=== PATIENT | male | born 1950 | race Caucasian/White ===

== ENCOUNTER 2021-11-04 10:21 | Day surgery (SDC) | payer SELFPAY ==
[2021-11-04 10:43] VITALS: BP 129/92; PULSE 79; RESP 16; TEMP 36.7; O2SAT 96
[2021-11-04] MEDS: Tropicam./Phenyleph. (1/2.5%) 5 ML BTL OD ×3 (10:59→11:10)
--- NOTE | 2021-11-04 12:34 | W.ANESPRE ---
General Info Date of Service Date Performed: 11/04/21 Height: 5 ft 8 in Weight: 101.5 kg Body Mass Index (BMI): 34.0 Surgical Procedure: Operation Date: 11/04/21 12:10 Proposed Procedure Side Surgeon p Cataract Extraction with IOL Implant Right Uday Estrada MD Meds Allergies and Home Medications Allergies Allergy/AdvReac Type Severity Reaction Status Date / Time No Known Allergies Allergy Verified 11/04/21 10:42 Home Medication Medication Instructions Recorded Unknown [No Known Home Meds] 10/31/21 Current Visit Medications: Current Medications Generic Name Dose Route Start Last Admin Trade Name Freq PRN Reason Stop Dose Admin Acetaminophen 1,000 mg 11/04/21 06:00 Acetaminophen 500 Mg Tab PO 11/04/21 16:00 Q4H PRN PRN Miscellaneous Medication 0 ml 11/04/21 06:00 Prednisolone 1%, Moxifloxacin 0.5%, Nepafenac 0.1% 5ml Btl OD 11/04/21 16:00 DIRECTED MARIOLA Miscellaneous Medication 0 ml 11/04/21 06:00 11/04/21 11:10 Tropicam./Phenyleph. (1/2.5%) 5 Ml Btl OD 11/04/21 16:00 1 drp DIRECTED MARIOLA Administration Tetracaine HCl 0 ml 11/04/21 06:00 Tetracaine 0.5% 4 Ml Btl OD 11/04/21 16:00 DIRECTED MARIOLA PFSH Medical History Medical History Cataracts, bilateral Surgical History Surgical History Hx of hernia repair Hx of tonsillectomy Tobacco Smoking/Tobacco Use Status: Never Alcohol Alcohol Intake: current Alcohol intake frequency: holidays/special occasions only Substance Use Substance use: Never Substance use type: does not use Vital Signs and Lab Results Vital Signs Most Recent Vital Signs in EMR: Most Recent Vital Signs Temp Pulse Resp BP Pulse Ox 36.7 C 79 16 129/92 H 96 11/04/21 10:43 11/04/21 10:43 11/04/21 10:43 11/04/21 10:43 11/04/21 10:43 Lab Results Blood Type / Crossmatch: No Data to Display Complete Blood Count: No Data to Display Complete Metabolic Panel: No Data to Display Liver Function Panel: No Data to Display Coagulation Panel: No Data to Display Cardiac Panel: No Data to Display Arterial Blood Gas: No Data to Display Venous Blood Gas: No Data to Display Pancreas Panel: No Data to Display Thyroid Panel: No Data to Display Infectious Disease: No Data to Display Blood Cultures: No Data to Display Toxicology Panel: No Data to Display Anesthesia Assessment and Plan Anesthesia History Personal History: No History of Anesthesia Complications Family History: No Family History of Anesthesia Complications Exercise Tolerance Exercise Tolerance: Metabolic Equivalents>4 Pertinent Negatives Pertinent Negatives: No Symptoms of GERD, No Major Cardiovascular Symptoms or Complaints, No Major Pulmonary Symptoms or Complaints and No History of CVA/TIA Cardiac & Pulmonary Exam Cardiac Exam: Normal S1/S2 Heart Sounds Pulmonary Exam: Clear Bilateral Breath Sounds Implantable Cardiac Device Does patient have a Pacemaker or an ICD?: No Airway Exam Known Difficult Airway: No Mallampati Class: 2 Mouth Opening: Normal (> 3cm) Thyromental Distance: Greater than 3 cm Facial Hair: Full [place] Neck Range of Motion: Limited ROM Neck Circumference: Thick Teeth Condition: Edentulous ASA Classification ASA Score: ASA 2 Emergency Case?: No NPO Status NPO Status: NPO Clears >2 hours, Solids >8 hours Anesthesia Plan Resuscitation Status: Full Code Anesthesia Technique: MAC Anesthesia Airway Planned: Natural Airway Monitors Used: Standard Monitors
[2021-11-04 12:35] VITALS: BMI 34.0
[2021-11-04] MEDS: Tetracaine 0.5% 4 ML BTL OD (13:06)
[2021-11-04] MEDS: Balanced Salt Soln.-PLUS 500 ML BAG (13:08)
[2021-11-04] MEDS: Duovisc Viscoelastic System EACH 1 EACH (13:09)
[2021-11-04] MEDS: Lidocaine 2% Jelly 6 ML SYR (13:10)
[2021-11-04] MEDS: Trypan Blue 0.06% 0.5 ML SYR (13:11)
--- NOTE | 2021-11-04 13:43 | W.PM.DSUDISC ---
Discharge Plan Disposition Patient Disposition: HOME Condition: Good Discharge Details Attending Provider: Uday Estrada Primary Care Provider: Rogelio Tapia Home Meds and New Rx's Prescriptions: No Action No Known Home Meds Discharge Instructions Stand Alone Forms: Post-op Topical Cataract, Ivonne Roque (DSU) Discharge Orders Discharge Orders: Discharge Order (Routine); Ordered 11/04/21 Ordered By: Uday Estrada DS: Diagnosis Discharge Diagnosis (1) Hypermature senile cataract of right eye: Status: Resolved
[2021-11-04 13:45] VITALS: BP 130/93; PULSE 55; RESP 16; TEMP 36.4; O2SAT 99
--- NOTE | 2021-11-04 13:46 | ROE_ITS ---
Date of service: 11/04/21 Time of Service: 12:46 Operative Note Operative Note DATE OF PROCEDURE: 11/04/21 PRE-OP DIAGNOSIS: Mature white cataract, right eye Absent red reflex, right eye POST-OP DIAGNOSIS: same PROCEDURE: Cataract extraction using phacoemulsification with intraocular lens implantation, right eye, using capsular staining with Vision Blue SURGEON: Uday Estrada ANESTHESIA TYPE: Local By Surgeon and MAC Refer to Anesthesia Record PATHOLOGY: none sent COMPLICATIONS: None Patient was transported to: same day Patient's condition: stable Implants: [employer] / [employer] Tecnis [id number] Indications: Progressive visual loss due to cataract, right eye Procedure Description: CATARACT SURGERY OPERATIVE REPORT PREOPERATIVE DIAGNOSIS: 1. Mature white cataract, right eye 2. Poor red reflex secondary to #1 POSTOPERATIVE DIAGNOSIS: Same OPERATION: 1. Cataract extraction using phacoemulsification with posterior chamber intraocular lens implant, right eye. 2. Capsular staining with Vision Blue IOL: IOL Featheredge Machine Operator/Model: Chaz & Chaz / UMER Tecnis [id number] IOL Power: + 18.5 diopters IOL Serial Number: [id number] Optic Diameter: 6.0mm Haptic/Overall Diameter: 13.0mm PHACO INFO: Neil [employer] Vision System with OZil and Active Fluidics Cumulative Dispersed Energy (CDE): 33.09 seconds SURGEON: Uday Estrada MD, RIYA ANESTHESIA: Monitored Anesthesia Care (MAC), with local sub-tenon's anesthetic infiltration COMPLICATIONS: None SPECIMENS: None INDICATIONS FOR PROCEDURE: The patient is a 71-year-old gentleman with history of progressive decreased vision in his right eye over the past several years. He is noted to have a mature white cataract with dense end of nucleus in the right eye with hand motions vision. The option of cataract surgery was offered to the patient and he wished to proceed. PROCEDURE: The correct surgical eye was identified and marked as the right eye and the pupil was dilated in the preoperative area using mydriatics and cycloplegics. The dilated pupil size was 7.0 mm. He elected to proceed without oral sedation. The patient was brought to the operating room where cardiopulmonary monitoring was instituted and surgical time-out was performed, confirming the correct operative eye and IOL power. Topical anesthesia was administered and ophthalmic povidone-iodine 5% was instilled into the conjunctival fornices. Lidocaine gel was applied to the cornea and the gabby-ocular area was prepped with Betadine 10% solution and draped in the usual sterile fashion for intraocular surgery, including an aperture drape. A Tegaderm transparent film dressing was cut in half and used to cover the lashes and lid margins. Care was taken to sequester the lashes and lid margins under the Tegaderm dressing. A lid speculum was placed between the lids of the operative eye and the Neil Lux[employer] Revalia operating microscope was maneuvered into position. Farooq scissors were then used to make a conjunctival buttonhole approximately 6mm posterior to the limbus in the inferonasal quadrant. Blunt dissection was carried out to expose bare sclera, and a blunt-tipped sub-tenon?s anesthesia cannula was introduced and passed posteriorly along the globe where non-pr eserved plain lidocaine was injected into posterior sub-Tenon?s space. A sideport knife was used to make a paracentesis port inferotemporally. Intraocular phenylephrine/lidocaine was injected into the anterior chamber. Air was injected into the anterior chamber, followed by Vision Blue, which was painted over the anterior capsule and then irrigated out with BSS. The anterior chamber was filled with viscoelastic. A 2.4 mm keratome knife was used to create a 2-plane near clear corneal tunnel extending approximately 2 mm into clear cornea superior temporally.. A flap was raised on the anterior capsule and capsulorhexis forceps were used to complete a continuous curvilinear capsulorhexis of 5.0 mm. The spiral technique was used to create the capsulorrhexis. The anterior chamber was noted to be quite deep with significant zonular laxity. Balanced salt solution was then used to perform cortical cleaving hydrodissection and nuclear hydrodelineation until the lens could be freely rotated within the capsular bag. The lens nucleus was then disassembled and removed within the capsular bag and iris plane using phacoemulsification. Cataract was noted to be quite dense with a dense end of nucleus and fibrotic posterior plate. Viscoat was injected into the anterior chamber intermittently to protect the corneal endothelium. Residual cortical material was removed using the I/A handpiece. The posterior capsule was carefully polished to remove as much residual lens epithelial cells as safely possible. The capsular bag was then inflated and the anterior chamber deepened with viscoelastic. A Type 15A Morcher capsular tension ring was inserted into the capsular bag without difficulty. The lens implant described above was inserted into the capsular bag using the UMER [place] Injector. A Kuglen hook was used to dial the IOL into position. Residual viscoelastic was then removed first from posterior to the IOL, then from the anterior chamber using the I/A handpiece. The lens implant was noted to center nicely within the capsular bag. The incisions were stromally hydrated, and the anterior chamber was reformed using BSS. Then 0.5cc of moxifloxacin 1.0mg/ml were injected into the capsular bag and anterior chamber. The incisions were checked with a Weck spear and found to be secure. Several drops of ophthalmic povidone-iodine 5% were then applied to the eye followed by two drops of Imprimis combination prednisolone/moxifloxacin/nepafenac solution. The drapes were removed and a clear plastic protective eye shield was placed over the eye. The patient was then returned to [facility] Day Surgery in stable condition.
--- NOTE | 2021-11-04 15:06 | W.ANESPOSTOP ---
Postoperative Evaluation Date, Time and Location Date Performed: 11/04/21 Time Performed: 13:35 Patient Location: Day Surgery Unit Vital Signs Most Recent Imported Vital Signs: Most Recent Vital Signs Temp Pulse Resp BP Pulse Ox 36.4 C L 55 L 16 130/93 H 99 11/04/21 13:45 11/04/21 13:45 11/04/21 13:45 11/04/21 13:45 11/04/21 13:45 Most Recent Manually Entered Vital Signs: Adult Blood Pressure: 138/72 Heart Rate: 78 Respirations: 12 Oxygen Saturation (%): 98 Temperature (C): 36.3 C Pain Score (0-10 Scale): 0 Pain Score Most Recent Pain Score: Most Recent Pain Score Pain Level 0 11/04/21 13:45 Assessment Mental Status: Awake (Alert & Oriented to Patient Baseline) Airway and Respiratory Function: Patent airway with normal (patient baseline) respiratory exam Cardiovascular Function: Hemodynamically Stable Hydration Status: Adequately Hydrated Nausea & Vomiting: No Nausea or Vomiting Pain: Pt. Denies Any Pain Peripheral Nerve Block: Patient did not receive a nerve block
[2021-11-04 15:08] VITALS: BP 138/72; PULSE 78; RESP 12; TEMPC 36.3; O2SAT 98
== END 2021-11-04 14:05 | disposition home or self-care (01) ==
PROVIDERS: PCP Nurse Practitioner Family; Visit Provider Ophthalmology
PROC: (CPT 66984; principal; 2021-11-04 12:00)
DX: H25.21 Age-related cataract, morgagnian type, right eye (principal)
CPT/HCPCS: 66984; V2632